=== PATIENT | male | born 1990 | race Two or more races ===

== ENCOUNTER 2016-12-10 12:41 | Emergency (ER) | payer OTHER ==
[~2016-12-10] VITALS: Ht 175.3 cm; Wt 94.3 kg
[2016-12-10 12:45] VITALS: BP 120/83
== END 2016-12-10 13:43 | disposition home or self-care (01) ==
LOC: EDSEX 12:43 → ER 12:43
DX: S61.432A Puncture wound without foreign body of left hand, initial encounter (principal); W34.010A Accidental discharge of airgun, initial encounter; Y93.89 Activity, other specified; Y92.89 Other specified places as the place of occurrence of the external cause; Y99.8 Other external cause status
CPT/HCPCS: 73130-TC; A4606; Z7610